=== PATIENT | male | born 1985 | race African-American/Black ===

== ENCOUNTER 2020-10-20 23:05 | Emergency (ER) | payer MEDICAID ==
[~2020-10-20] VITALS: Ht 182.9 cm; Wt 88.5 kg
[2020-10-20 23:13] VITALS: BP 137/86
== END 2020-10-21 01:54 | disposition left against medical advice (07) ==
LOC: ER 23:05
DX: R36.9 Urethral discharge, unspecified (principal); Z53.21 Procedure and treatment not carried out due to patient leaving prior to being seen by health care provider

== ENCOUNTER 2020-10-21 03:14 | Emergency (ER) | payer MEDICAID ==
[~2020-10-21] VITALS: Ht 182.9 cm; Wt 83.9 kg
[2020-10-21 03:56] VITALS: BP 108/67
[2020-10-21] MEDS ORDERED: AZITHROMYCIN 250 MG TAB PO ONE (04:00)
[2020-10-21] MEDS ORDERED: cefTRIAXone SOD 1,000 MG VL IM ONE (04:00)
== END 2020-10-21 04:49 | disposition home or self-care (01) ==
LOC: ER 03:14
DX: Z20.2 Contact with and (suspected) exposure to infections with a predominantly sexual mode of transmission (principal)
CPT/HCPCS: 96372; 99283; J0696